=== PATIENT | female | born 1955 | race Native Hawaiian/Other Pacific Islander ===

== ENCOUNTER 2017-03-11 17:01 | Outpatient (CLI) | payer OTHER ==
[2017-03-11] MEDS ORDERED: CELEXA40 MG PO (17:19)
[2017-03-11] MEDS ORDERED: GRALISE600 MG OR (17:19)
[2017-03-11] MEDS ORDERED: VESICARE5 MG OR ×2 (17:21→17:22)
[2017-03-11] MEDS ORDERED: LORTAB 5-325 MG1 TAB PO (17:21)
[2017-03-11] MEDS ORDERED: TRAM50TA PO (17:23)
== END 2017-03-11 17:03 | disposition short-term general hospital (02) ==
LOC: AMB 17:01
DX: S01.412A Laceration without foreign body of left cheek and temporomandibular area, initial encounter (principal); R07.89 Other chest pain; R42 Dizziness and giddiness; W18.39XA Other fall on same level, initial encounter; Y92.096 Garden or yard of other non-institutional residence as the place of occurrence of the external cause
CPT/HCPCS: A0425; A0427

== ENCOUNTER 2017-03-11 17:08 | Observation (INO) | payer OTHER ==
[~2017-03-11] VITALS: Ht 154.9 cm; Wt 93.7 kg
[2017-03-11 17:08] VITALS: BP 140/87; TEMP 98
[2017-03-11] MEDS ORDERED: GRALISE600 MG OR (17:19)
[2017-03-11] MEDS ORDERED: CELEXA40 MG PO (17:19)
[2017-03-11] MEDS ORDERED: VESICARE5 MG OR ×2 (17:21→17:22)
[2017-03-11] MEDS ORDERED: LORTAB 5-325 MG1 TAB PO (17:21)
[2017-03-11] MEDS ORDERED: TRAM50TA PO (17:23)
[2017-03-11 17:31] VITALS: BP 132/64
[2017-03-11 17:43] LABS: PLATELET COUNT 350 K/uL (152-353)
[2017-03-11 17:47] LABS: POTASSIUM 3.8 mmol/L (3.6-5.2); SODIUM 134 mmol/L (136-145)
[2017-03-11 18:30] VITALS: BP 128/72
[2017-03-11 19:17] VITALS: BP 133/69
[2017-03-11 22:09] VITALS: BP 136/74; TEMP 97.5; Ht 154.9 cm; Wt 93.7 kg
[2017-03-12] VITALS: BP 118/69; BP 121/54; BP 137/67; TEMP 97.5
[2017-03-12 04:00] VITALS: BP 136/64; TEMP 97.7
[2017-03-12 08:00] VITALS: BP 141/63; TEMP 98.8
[2017-03-12 08:55] LABS: PLATELET COUNT 398 K/uL (152-353); SODIUM 133 mmol/L (136-145)
[2017-03-12 09:20] LABS: PARTIAL THROMBOPLASTIN TIME 24.5 SECONDS (24.5-33.6)
[2017-03-12 12:00] VITALS: BP 132/52; TEMP 97.6
== END 2017-03-12 17:42 | disposition short-term general hospital (02) ==
LOC: ED 17:08 → MED/SURG 19:15
PROVIDERS: ADMIT Specialist
DX: R07.89 Other chest pain (principal); E11.9 Type 2 diabetes mellitus without complications; Z91.81 History of falling
CPT/HCPCS: 36415; 80053; 82550; 82553; 83735; 84100; 84484; 85027; 85610; 85730; 93005; 94760; 99220; 99284; G0378; J1644; J1650

== ENCOUNTER 2019-10-17 17:43 | Outpatient (CLI) | payer OTHER ==
[~2019-10-17 17:43] MED LIST: CELEXA40 MG PO; GRALISE600 MG OR; LORTAB 5-325 MG1 TAB PO; TRAM50TA PO; VESICARE5 MG OR
== END 2019-10-17 23:41 | disposition home or self-care (01) ==
LOC: LAB 17:43
DX: R19.7 Diarrhea, unspecified (principal)
CPT/HCPCS: 82272; 83630; 87015; 87045; 87324; 87328; 87329; 87449; 87899

== ENCOUNTER 2020-07-12 20:48 | Emergency (ER) | payer OTHER ==
[~2020-07-12] VITALS: Ht 154.9 cm; Wt 92.1 kg
[2020-07-12 22:45] VITALS: BP 149/56; TEMP 98.3
== END 2020-07-12 22:45 | disposition home or self-care (01) ==
LOC: ED 20:48
DX: S00.83XA Contusion of other part of head, initial encounter (principal); J32.8 Other chronic sinusitis; S01.412A Laceration without foreign body of left cheek and temporomandibular area, initial encounter; Z91.81 History of falling; R26.81 Unsteadiness on feet; W01.198A Fall on same level from slipping, tripping and stumbling with subsequent striking against other object, initial encounter; Y92.098 Other place in other non-institutional residence as the place of occurrence of the external cause
CPT/HCPCS: 99283

== ENCOUNTER 2021-03-30 12:15 | Emergency (ER) | payer OTHER ==
[~2021-03-30] VITALS: Ht 154.9 cm; Wt 93.0 kg
[2021-03-30 12:31] VITALS: TEMP 100.4
[2021-03-30 13:30] LABS: PLATELET COUNT 233 K/uL (152-353)
[2021-03-30 16:05] VITALS: BP 128/98
== END 2021-03-30 16:05 | disposition home or self-care (01) ==
LOC: ED 12:15
PROVIDERS: Emergency Medicine
DX: S00.03XA Contusion of scalp, initial encounter (principal); S16.1XXA Strain of muscle, fascia and tendon at neck level, initial encounter; N39.0 Urinary tract infection, site not specified; X58.XXXA Exposure to other specified factors, initial encounter; Y92.89 Other specified places as the place of occurrence of the external cause
CPT/HCPCS: 80053; 81000; 85027; 87077; 87086; 87088; 87186; 99283